=== PATIENT | male | born 1975 | race African-American/Black ===

== ENCOUNTER 2016-11-21 12:20 | Emergency (ER) | payer MEDICAID ==
[~2016-11-21] VITALS: Ht 180.3 cm; Wt 85.0 kg
[2016-11-21 12:26] VITALS: BP 127/73
== END 2016-11-21 14:02 | disposition left against medical advice (07) ==
LOC: ER 12:37
DX: R44.0 Auditory hallucinations (principal); Z53.21 Procedure and treatment not carried out due to patient leaving prior to being seen by health care provider